=== PATIENT | male | born 2000 | race Caucasian/White ===

== ENCOUNTER 2023-01-26 15:57 | Emergency (ER) | payer OTHER ==
[~2023-01-26] VITALS: Ht 172.7 cm; Wt 139.3 kg
[2023-01-26 16:04] VITALS: BP 127/69
[2023-01-26] MEDS ORDERED: KETOROLAC 15 MG/ML VIAL IM ONE (16:40)
[2023-01-26 16:56] LABS: BASOPHILS # (AUTO) 0.1 K/uL (0.00-0.22); BASOPHILS % (AUTO) 0.7 % (0.0-2.0); EOSINOPHILS # (AUTO) 0.3 K/uL (0-0.4); EOSINOPHILS % (AUTO) 3.3 % (0.0-4.0); HEMATOCRIT 42.9 % (36-52); HEMOGLOBIN 14.4 g/dL (12.0-18.0); LYMPHOCYTES # (AUTO) 2.6 K/uL (2.0-11.5); MEAN CORPUSCULAR HEMOGLOBIN 27 pg (27-31); MEAN CORPUSCULAR HGB CONC 34 g/dL (33-37); MEAN CORPUSCULAR VOLUME 81.4 fL (80-94); MONOCYTES # (AUTO) 0.9 K/uL (0.8-1.0); MONOCYTES % (AUTO) 8.6 % (1.7-9.3); NEUTROPHILS # (AUTO) 6.4 K/uL (1.8-7.7); NEUTROPHILS % (AUTO) 62.4 % (42.2-75.2); PLATELET COUNT (AUTO) 243 K/uL (140-450); RED BLOOD CELL COUNT(AUTO) 5.28 MIL/uL (4.20-6.10); RED CELL DISTRIBUTION WIDTH 14.7 % (11.6-13.7); WHITE BLOOD COUNT (AUTO) 10.3 K/uL (4.8-10.8)
[2023-01-26 17:26] LABS: ANION GAP 10.4 (8-16); CARBON DIOXIDE 30.9 mmol/L (21-32); POTASSIUM 4.3 mmol/L (3.5-5.1); TOTAL BILIRUBIN 0.3 mg/dL (0.0-1.0)
[2023-01-26] MEDS ORDERED: KETOROLAC 15 MG/ML VIAL ONE (17:45)
[2023-01-26] MEDS ORDERED: OMEP40EC23 PO (17:51)
--- NOTE | 2023-01-26 17:52 | NUR ---
22 y/o M BIB self from home c/o mid abdomen x 1 month ago; worsened 2 weeks ago. Diagnosed with gallstones at [facility] 1 month ago. Reports mid abdomen pain 6/10, stabbing/intermittent, non-radiating. Worsens with movement. States nausea and dizziness x 10 days. Denies OTC meds. Denies injury, trauma, falls, fever, chills, vomiting, diarrhea, constipation, urinary symptoms, chest pain. Bed locked in lowest position, side rails x 1. PMH/Sx/Meds: Denies NKDA
--- NOTE | 2023-01-26 18:13 | NUR ---
Patient states + relief to pain 5/10 at this time.
[2023-01-26 18:14] VITALS: BP 109/63
--- NOTE | 2023-01-26 18:14 | NUR ---
Patient discharged with v/s stable. Written and verbal after care instructions given and explained for Cholelithiasis, Abdominal Pain (Adult). Patient alert, oriented and verbalized understanding of instructions. Ambulatory with steady gait. All questions addressed prior to discharge. ID band removed. Patient advised to follow up with PMD. Rx of Prilosec given. Patient educated on indication of medication including possible reaction and side effects. Opportunity to ask questions provided and answered. Copy of Ultrasound and blood work report given to patient.
== END 2023-01-26 18:14 | disposition home or self-care (01) ==
LOC: MED 15:57
DX: K80.50 Calculus of bile duct without cholangitis or cholecystitis without obstruction (principal); Z79.899 Other long term (current) drug therapy
CPT/HCPCS: 36415; 76705; 80053; 83690; 85025; 96372; 99285; J1885; Q0092